=== PATIENT | male | born 1970 | race Caucasian/White ===

== ENCOUNTER 2020-12-19 14:51 | Emergency (ER) | payer SELFPAY ==
[~2020-12-19] VITALS: Ht 193 cm; Wt 117.9 kg
[2020-12-19 14:51] VITALS: BP 147/83
[2020-12-19] MEDS ORDERED: FLUORESCEIN (FLUOR-I-STRIPS) 1 MG STRP ONE (15:02)
[2020-12-19] MEDS ORDERED: TETRACAINE 0.5% OPHTH SOLN 4 ML BTL (SINGLE DOSE ONLY) ONE (15:02)
--- NOTE | 2020-12-19 15:08 | ED EENT ---
History of Present Illness General Chief Complaint: Eye Problems Stated Complaint: RT EYE INJ History of Present Illness Date Seen by Provider: Dec 19, 2020 Time Seen by Provider: 15:00 Initial Comments 50-year-old male presents with right eye injury. Was using a weed eater around noon today and a rock in his right eye. He was not wearing eye protection. Denies loss of vision, however he is having some light sensitivity and pain. Worse with movement. No history of eye problems or other complaints. Allergies and Home Medications Allergies Coded Allergies: No Known Drug Allergies (Unverified , 12/19/20) Home Medications Polymyxin B Sulf/Trimethoprim 10 Ml Drops, 2 DROPS OP Q4H Prescribed by: VALENCIA EDGAR on 12/19/20 0025 Patient Home Medication List Home Medication List Reviewed: Yes Review of Systems Review of Systems Constitutional: No fever, No malaise, No weakness Eyes: See HPI; Denies Blindness; Blurred Vision; Denies Foreign Body Sensation; Pain, Photophobia; Denies Contact Lenses Gastrointestinal: No nausea, No vomiting Visual Acuity : Eye Location: Right Physical Exam Vital Signs Vital Signs - First Documented 12/19/20 14:51 Temp 36.6 Pulse 72 Resp 16 B/P (MAP) 147/83 (104) Pulse Ox 97 O2 Delivery Room Air Height, Weight, BMI Height: '" Weight: lbs. oz. kg; BMI Method: General Appearance: WD/WN, no apparent distress Eyes: right eye corneal abrasion, right eye lid injury (ecchymosis); bilateral eye PERRL, bilateral eye EOMI Neurologic/Psychiatric: no motor/sensory deficits, alert, normal mood/affect, oriented x 3 Procedures/Interventions Eye : Location: right eye Anesthesia (gtts): Tetracaine Progress/Procedure Conclusion flourescien stain shows several small abrasions of cornea in half crescent shape Progress/Results/Core Measures Results/Orders My Orders Orders - VALENCIA EDGAR DO Tetracaine 0.5% Ophth Lavern Sdv (Tetracai (12/19/20 15:15) Fluorescein Strips ([id number]) (12/19/20 15:15) Balanced Salt Irrigation Soln (Bss Irrig (12/19/20 15:15) Fluorescein Strips ([id number]) (12/19/20 15:02) Tetracaine 0.5% Ophth Lavern Sdv (Tetracai (12/19/20 15:02) Medications Given in ED Current Medications Medications Dose Ordered Sig/Isha Route Start Time Stop Time Status Last Admin Dose Admin Balanced Salt Solution 15 ml ONCE ONCE IR 12/19/20 15:15 12/19/20 15:16 12/19/20 15:10 15 ML Fluorescein Sodium 1 mg ONCE ONCE OU 12/19/20 15:15 12/19/20 15:16 12/19/20 15:07 1 MG Tetracaine HCl 4 ml ONCE ONCE OU 12/19/20 15:15 12/19/20 15:16 12/19/20 15:07 4 ML Vital Signs/I&O 12/19/20 14:51 Temp 36.6 Pulse 72 Resp 16 B/P (MAP) 147/83 (104) Pulse Ox 97 O2 Delivery Room Air Progress Progress Note : Progress Note able to open eye and felt much better after tetracaine. REassurance given, instructions on use of eye gtts, and rec f/u w Ophtho advised. Departure Impression Primary Impression: Corneal abrasion Qualified Codes: S05.01XA - Injury of conjunctiva and corneal abrasion without foreign body, right eye, initial encounter Disposition: HOME, SELF-CARE Condition: Stable Departure-Patient Inst. Decision time for Depature: 15:14 Referrals: NO,LOCAL PHYSICIAN (PCP/Family) Primary Care Physician Patient Instructions: Corneal Abrasion (DC) Add. Discharge Instructions: Call your EYE doctor tomorrow to schedule a follow up examination in 1 to 2 days All discharge instructions reviewed with patient and/or family. Voiced understanding. Scripts Polymyxin B Sulf/Trimethoprim (Polytrim Eye Drops) 10 Ml Drops 2 DROPS OP Q4H for 5 Days, #1 VIAL Prov: VALENCIA EDGAR DO 12/19/20 VALENCIA EDGAR DO Dec 19, 2020 15:08
[2020-12-19] MEDS ORDERED: FLUORESCEIN (FLUOR-I-STRIPS) 1 MG STRP OU ONE (15:15)
[2020-12-19] MEDS ORDERED: POLY10DR OP (15:15)
[2020-12-19] MEDS ORDERED: TETRACAINE 0.5% OPHTH SOLN 4 ML BTL (SINGLE DOSE ONLY) OU ONE (15:15)
[2020-12-19] MEDS ORDERED: BSS 15 ML IR ONE (15:15)
== END 2020-12-19 15:17 | disposition home or self-care (01) ==
LOC: ER FS 14:53
DX: S05.01XA Injury of conjunctiva and corneal abrasion without foreign body, right eye, initial encounter (principal); Y93.H2 Activity, gardening and landscaping
CPT/HCPCS: 99282